=== PATIENT | female | born 1990 | race Caucasian/White ===

== ENCOUNTER 2016-06-10 18:56 | Emergency (ER) | payer MEDICAID ==
[~2016-06-10] VITALS: Ht 162.6 cm; Wt 59.0 kg
[2016-06-10 19:06] VITALS: BP 129/104; PULSE 100; RESP 18; TEMP 98.1; O2SAT 98
[2016-06-10] MEDS ORDERED: KETOROLAC TROMETHAMINE 30 MG VIAL IVP ONE (19:45)
[2016-06-10] MEDS ORDERED: LORazepam 2 MG/ML VIAL (FOR ER USE) IVP ONE (19:45)
[2016-06-10 19:55] LABS: BILIRUBIN,URINE NEGATIVE (NEGATIVE); BLOOD, URINE NEGATIVE (NEGATIVE); GLUCOSE,URINE NEGATIVE (NEGATIVE); KETONES,URINE TRACE (NEGATIVE); LEUKOCYTE ESTERASE ,URINE NEGATIVE (NEGATIVE); NITRITE, URINE NEGATIVE (NEGATIVE); PH,URINE 5.5 (5.0-8.0); PROTEIN URINE 1+ (NEGATIVE); UROBILINOGEN,URINE 0.2 (0.2-1.0)
[2016-06-10 20:01] LABS: CLARITY/URINE SLIGHTLY HAZY (CLEAR); COLOR,URINE AMBER (YELLOW)
[2016-06-10 20:02] LABS: BACTERIA,URINE FEW /HPF (None Seen); MUCUS,URINE 2+ /LPF (None Seen); RBC,URINE 0-3 /HPF (0-3); WBC,URINE 0-3 /HPF (0-3)
[2016-06-10 20:50] VITALS: BP 122/76; PULSE 78; RESP 18; TEMP 98.1; O2SAT 100
== END 2016-06-10 20:50 | disposition home or self-care (01) ==
LOC: SED 18:56
DX: R10.84 Generalized abdominal pain (principal); F41.9 Anxiety disorder, unspecified; F90.9 Attention-deficit hyperactivity disorder, unspecified type
CPT/HCPCS: 81000; 81025; 96374; 96375; 99284; J1885; J2060

== ENCOUNTER 2017-03-26 21:23 | Emergency (ER) | payer MEDICAID ==
[~2017-03-26] VITALS: Ht 162.6 cm; Wt 58.1 kg
[2017-03-26 22:04] VITALS: BP_SYST 118
--- NOTE | 2017-03-26 22:50 | NUR ---
PATIENT CALLED FOR AVAILABLE BED. PATIENT IS NOT IN WAITING ROOM. WILL CALL AGAIN IN 10 MINS.
--- NOTE | 2017-03-26 23:07 | NUR ---
PATIENT CALLED FOR AVAILABLE BED. PATIENT NOT IN WAITING ROOM. WILL CALL BACK AGAIN IN 10 MINS. CHARGE NURSE NOTIFIED.
--- NOTE | 2017-03-26 23:17 | NUR ---
PATIENT CALLED FOR TRIAGE RE ASSESSMENT. PATIENT IS NOT IN WAITING ROOM. PATIENT CALLED A TOTAL OF 3 TIMES. PATIENT LEFT WITHOUT BEING SEEN.
== END 2017-03-26 23:17 | disposition left against medical advice (07) ==
LOC: SED 21:23
DX: R05 Cough (principal); Z53.21 Procedure and treatment not carried out due to patient leaving prior to being seen by health care provider
CPT/HCPCS: 81025